=== PATIENT | female | born 1995 | race Caucasian/White ===

== ENCOUNTER 2019-11-08 05:59 | Inpatient (IN) ==
[2019-11-08] MEDS ORDERED: ONDANSETRON 4 MG/2 ML VIAL IV PRN (07:41)
[2019-11-08 08:01] LABS: Basophils % 0.3 % (0.0-0.8); Eosinophils # 0.2 10*3/uL (0.0-0.87); Eosinophils % 1.8 % (0.00-10.9); Hematocrit 37.9 VOL% (35.7-47.0); Hemoglobin 12.2 GM/DL (12.0-16.0); Immature Granulocytes % 0.7 %; Immature Granulocytes Absolute 0.09 #; Lymphocytes # 1.6 10*3/uL (1.4-4.0); Mean Corpuscular HGB Conc 32.2 GM/DL (32-36); Mean Corpuscular Volume 89.2 FL (87-102); Mean Platelet Volume 9.8 FL (9.6-12.0); Monocytes % 6.8 % (1.7-12.7); Neutrophils % 78.4 % (38.7-73.9); Platelet Count 235 T/CUMM (130-400); Red Blood Count 4.25 MC/CUMM (3.8-5.5); Red Cell Distribution Width 14.5 % (9.3-17.3); White Blood Count 13.1 T/CUMM (4-12)
[2019-11-08] MEDS: LACTATED RINGERS 1,000 ML IV SCH ×3 (08:41→19:49)
[2019-11-08] MEDS: OXYTOCIN/LR 20 UNIT/1,000 ML BAG IV SCH (08:41)
[2019-11-08] MEDS: MEPERIDINE 50 MG/1 ML VIAL IV PRN ×2 (15:24→17:36)
[2019-11-08] MEDS ORDERED: ePHEDrine 50 MG/ML AMP IV PRN (18:42)
[2019-11-08] MEDS ORDERED: ONDANSETRON 4 MG/2 ML VIAL IV ONE (18:42)
[2019-11-08] MEDS ORDERED: PROMETHAZINE 25 MG/1 ML VIAL IM ONE (18:42)
[2019-11-08] MEDS ORDERED: LACTATED RINGERS 250 ML IV PRN (18:42)
[2019-11-08] MEDS ORDERED: diphenhydrAMINE 50 MG/1 ML VIAL IV PRN ×2 (18:42)
[2019-11-08] MEDS ORDERED: NALOXONE 0.4 MG/ML VIAL IV PRN (18:42)
[2019-11-08] MEDS ORDERED: hydrOXYzine HCL 25 MG/1 ML VIAL IM PRN (18:42)
[2019-11-08] MEDS ORDERED: CITRIC ACID/SODIUM CITRATE 30 ML UDCUP PO ONE (18:51)
[2019-11-08] MEDS ORDERED: FAMOTIDINE 20 MG/2 ML VIAL IV ONE (18:51)
[2019-11-08] MEDS ORDERED: CITRIC ACID/SODIUM CITRATE 30 ML UDCUP ONE (18:52)
[2019-11-08] MEDS: fentaNYL 2 MCG/ROPIV 0.2% EPID 100 ML EPIDURAL SCH (19:27)
[2019-11-08 20:41] LABS: Apearance,Urine CLEAR (Clear); Bilirubin,Urine Negative (Negative); Blood, Urine Negative (Negative); Glucose,Urine (UA) Negative (Negative); Ketones,Urine 80 mg/dL (Negative); Nitrite,Urine Negative (Negative); Protein,Urine Negative; RBC,Urine <1 /HPF (0-4); Squamous Epithelial Cell,Urine Occasional /HPF (0-10); Urine Color Yellow (Yellow); Urine Specific Gravity 1.013 (1.001-1.035); Urine Urobilinogen < 2.0 EU/DL (0.2-1.0); WBC,Urine <1 /HPF (0-6)
[2019-11-08] MEDS ORDERED: OXYTOCIN/LR 20 UNIT/1,000 ML BAG IV ONE (21:00)
[2019-11-08] MEDS ORDERED: miSOPROStoL 200 MCG TABLET ONE (21:00)
[2019-11-08] MEDS ORDERED: TRANEXAMIC ACID 1,000 MG/10 ML VIAL ONE (21:00)
[2019-11-08] MEDS ORDERED: CARBOPROST TROMETHAMINE 250 MCG/ML AMP IM ONE (21:01)
[2019-11-08] MEDS ORDERED: METHYLERGONOVINE 0.2 MG/1 ML AMP ONE (21:01)
[2019-11-09] MEDS: fentaNYL 2 MCG/ROPIV 0.2% EPID 100 ML EPIDURAL SCH (02:47)
[2019-11-09] MEDS: LACTATED RINGERS 1,000 ML IV SCH (04:20)
[2019-11-09] MEDS ORDERED: WITCH HAZEL PADS 100/JAR TOP PRN (08:05)
[2019-11-09] MEDS ORDERED: HYDROCORTISONE 2.5% RECTAL CREAM 30 GM TUBE TOP PRN (08:05)
[2019-11-09] MEDS ORDERED: oxyCODONE/ACETAMINOPHEN 5-325 MG TABLET PO PRN ×2 (08:05)
[2019-11-09] MEDS ORDERED: ONDANSETRON 4 MG/2 ML VIAL IV PRN (08:05)
[2019-11-09] MEDS ORDERED: MEASLES/MUMPS/RUBELLA VACCINE 0.5 ML VIAL SUBCUT ONE (08:05)
[2019-11-09] MEDS ORDERED: OXYTOCIN/LR 20 UNIT/1,000 ML BAG IV ONE (08:05)
[2019-11-09] MEDS ORDERED: BENZOCAINE 20%/MENTHOL 0.5% SPRAY 56 GM CAN TOP PRN (08:05)
[2019-11-09] MEDS ORDERED: DIPH/TET/ACEL PERT BOOSTER VACCINE 0.5 ML VIAL IM ONE (08:05)
[2019-11-09] MEDS ORDERED: RHO(D) IMMUNE GLOBULIN 300 MCG SYRINGE IM ONE (08:05)
[2019-11-09] MEDS ORDERED: ACETAMINOPHEN 325 MG TABLET PO PRN (08:05)
[2019-11-09] MEDS ORDERED: BISACODYL 10 MG SUPP RECTAL PRN (08:05)
[2019-11-09] MEDS ORDERED: LANOLIN 50% CREAM 0.3 OZ TUBE TOP PRN (08:05)
[2019-11-09] MEDS ORDERED: IBUPROFEN 800 MG TABLET PO PRN (08:05)
[2019-11-09] MEDS: OXYTOCIN/LR 20 UNIT/1,000 ML BAG IV SCH (09:17)
[2019-11-09] MEDS: DOCUSATE SODIUM 100 MG CAPSULE PO SCH (20:21)
[2019-11-10 07:23] LABS: Basophils # 0.1 10*3/uL (0.0-0.2); Basophils % 0.3 % (0.0-0.8); Eosinophils # 0.3 10*3/uL (0.0-0.87); Eosinophils % 1.7 % (0.00-10.9); Hematocrit 33.4 VOL% (35.7-47.0); Hemoglobin 10.8 GM/DL (12.0-16.0); Immature Granulocytes % 0.4 %; Immature Granulocytes Absolute 0.07 #; Lymphocytes # 2.5 10*3/uL (1.4-4.0); Lymphocytes % 15.4 % (21.3-54.2); Mean Corpuscular HGB Conc 32.3 GM/DL (32-36); Mean Corpuscular Volume 89.3 FL (87-102); Monocytes % 6.7 % (1.7-12.7); Neutrophils % 75.5 % (38.7-73.9); Platelet Count 200 T/CUMM (130-400); Red Blood Count 3.74 MC/CUMM (3.8-5.5); Red Cell Distribution Width 14.7 % (9.3-17.3)
[2019-11-10 09:46] VITALS: BP 104/70
[2019-11-10] MEDS: DOCUSATE SODIUM 100 MG CAPSULE PO SCH (10:00)
== END 2019-11-10 19:36 | disposition home or self-care (01) | DRG 807 ==
LOC: N.LDOUT 05:59 → N.LD 06:16 → N.OB 11-09 09:37
PROVIDERS: ADMIT Obstetrics & Gynecology; ATTEND Obstetrics & Gynecology